=== PATIENT | male | born 1990 | race Caucasian/White ===

== ENCOUNTER 2018-06-19 18:01 | Emergency (ER) | payer OTHER ==
--- NOTE | 2018-06-19 18:17 | EDPHY ---
H & P Stated Complaint: CI Time Seen by Provider: 06/19/18 18:05 HPI/ROS: CHIEF COMPLAINT: Alcohol intoxication HISTORY OF PRESENT ILLNESS: 28-year-old male presents with alcohol intoxication. [place] the bus stop, obviously intoxicated and fell forward onto the pavement. He was unable to get up unassisted. He was placed on are cold and brought to the emergency department. He denies any injury or pain. He drank his usual amount of alcohol today, 1-2 pints. No drug use. REVIEW OF SYSTEMS: complete 10 point ROS reviewed and is negative except for the noted elements in the HPI - Personal History Current Tetanus/Diphtheria Vaccine: No - Medical/Surgical History Hx Asthma: No Hx Chronic Respiratory Disease: No Hx Diabetes: No Hx Cardiac Disease: No Hx Renal Disease: No Hx Cirrhosis: No Hx Alcoholism: No Other PMH: Depression, SA, SI - Social History Smoking Status: Heavy smoker Alcohol Use: Heavy - Physical Exam Exam: General Appearance: Alert, slurred speech, cooperative Eyes: Pupils dilated, no nystagmus ENT, Mouth: Mucous membranes moist, no facial bony tenderness, no trauma Neck: normal inspection, no midline tenderness, range of motion without pain Respiratory: Lungs are clear to auscultation Cardiovascular: Regular rate and rhythm Gastrointestinal: Abdomen is soft and nontender Neurological: Alert, non-focal exam Skin: Warm and dry, no visible wounds Extremities: normal inspection Psychiatric: Mood and affect normal Constitutional: Initial Vital Signs Temperature (C) 36.4 C 06/19/18 18:06 Heart Rate 96 06/19/18 18:06 Respiratory Rate 18 06/19/18 18:06 Blood Pressure 101/62 06/19/18 18:06 O2 Sat (%) 93 06/19/18 18:06 O2 Delivery Mode Room Air Allergies/Adverse Reactions: No Known Allergies Allergy (Unverified 06/19/18 18:09) Home Medications: Medication Instructions Recorded Unobtainable 06/19/18 Medical Decision Making ED Course/Re-evaluation: This patient presents with alcohol intoxication. On an [facility] hold. No evidence of injury on exam. Will observe until he is able to walk with a steady gait. 2010: able to walk with a steady gait. Patient is asymptomatic. To the [facility] via PD. Departure - Departure Disposition: Home, Routine, Self-Care Clinical Impression: Alcoholic intoxication Condition: Good Instructions: Alcohol Intoxication (ED) Referrals: [facility] 24 Hours [Outside] - As per Instructions
[2018-06-19 20:16] VITALS: BP 103/61
== END 2018-06-19 20:53 | disposition home or self-care (01) ==
LOC: EDUNIT#
DX: F10.920 Alcohol use, unspecified with intoxication, uncomplicated (principal); F17.200 Nicotine dependence, unspecified, uncomplicated

== ENCOUNTER 2018-08-12 18:51 | Emergency (ER) | payer MEDICAID ==
--- NOTE | 2018-08-12 19:02 | EDPHY ---
HPI/HX/ROS/PE/MDM Narrative: CHIEF COMPLAINT: AMS/EtOH HPI: This patient is a 28 year old male who arrives with police escort for evaluation of altered mental status and alcohol intoxication. The patient was found apparently altered at the [employer] [facility] on [facility]. Police discovered him propped up on bar stools at the counter. He had a receipt for two well tequilas and one Celina beer in his pocket. He denied any drug use. The patient is answering questions appropriately but does not volunteer much history at this time. REVIEW OF SYSTEMS: A comprehensive 10 system review of systems is otherwise negative aside from elements mentioned in the history of present illness and medical decision making. PMH: Depression. SOCIAL HISTORY: Single. Lives in [place]. Employed. PHYSICAL EXAM: General: Patient smells of alcohol, appears intoxicated. He responds appropriately to questions. 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 ENT:Eyes are normal to inspection. ENT inspection normal. Neck: Normal inspection. Full range of motion. Respiratory:No respiratory distress. Breath sounds normal bilaterally. Cardiovascular: Regular rate and rhythm. Strong peripheral pulses. Normal cap refill. Abdomen:The abdomen is nontender to palpation. There are no peritoneal signs. There are normal bowel sounds. Back: Normal to inspection. No tenderness to palpation. Skin: Normal color. No rash. Warm and dry. Extremities: Normal appearance. Full range of motion. Neuro: Normal motor function. Normal sensory function. ED Course: Patient placed on [facility] hold. Plan to observe. General Time Seen by Provider: 08/12/18 18:57 Initial Vital Signs: Initial Vital Signs Temperature (C) 36.8 C 08/12/18 18:52 Heart Rate 92 08/12/18 18:52 Respiratory Rate 16 08/12/18 18:52 Blood Pressure 117/84 H 08/12/18 18:52 O2 Sat (%) 95 08/12/18 18:52 O2 Delivery Mode Room Air Allergies/Adverse Reactions: No Known Allergies Allergy (Unverified 06/19/18 18:09) Home Medications: Medication Instructions Recorded Unobtainable 06/19/18 Departure - Departure Disposition: Home, Routine, Self-Care Clinical Impression: Alcoholic intoxication Condition: Good Instructions: Alcohol Intoxication (ED) Referrals: Patient,NotPresent [Primary Care Provider] - As per Instructions Report Scribed for: Edgar Mcclellan Report Scribed by: Meron Adkins Date of Report: 08/12/18 Time of Report: 20:06 Physician Review and Approval Statement: Portions of this note were transcribed by an ED scribe. I personally performed the history, physical exam, and medical decision making; and confirm the accuracy of the information in the transcribed note.
[2018-08-12] MEDS ORDERED: CHLORDIAZEPOXIDE 25MG PREPK#6 BTL TAKEHOME ONE (22:29)
[2018-08-12 22:40] VITALS: BP 106/63
== END 2018-08-12 22:39 | disposition home or self-care (01) ==
LOC: EDUNIT#
DX: F10.920 Alcohol use, unspecified with intoxication, uncomplicated (principal)